=== PATIENT | female | born 1960 | race Caucasian/White ===

== ENCOUNTER 2016-06-18 12:47 | Inpatient (IN) | payer OTHER ==
[~2016-06-18] VITALS: Ht 165.1 cm; Wt 59.2 kg
[2016-06-18 13:34] LABS: EOSINOPHIL (%) 3.6 % (0-5); EOSINOPHIL COUNT 0.3 K/uL (0-0.3); HEMATOCRIT 39.5 % (36.0-46.0); IMMATURE GRANULOCYTE (%) 0.3 % (0.0-0.7); IMMATURE GRANULOCYTE COUNT 0.2 K/uL; MCH 29.7 PG (29.0-34.0); MCHC 34.2 G/DL (30.0-36.0); MEAN PLAT.VOLUME 10.4 uM^3 (9.5-12.4); MONOCYTE (%) 4.8 % (3-12); MONOCYTE COUNT 0.3 K/uL (0-0.8); NEUTROPHIL (%) 61.9 % (45-76); NEUTROPHIL COUNT 4.2 K/uL (1.8-6.4); PLATELET COUNT 204 K/uL (156-360); RBC DIS.WIDTH-CV 12.5 % (11.8-14.6); RBC DIS.WIDTH-SD 38.7 % (39-53); RED BLOOD COUNT 4.54 M/uL (3.80-5.20); WHITE BLOOD COUNT 6.9 K/uL (4.1-10.2)
[2016-06-18 13:41] LABS: AMYLASE 66 IU/L (1-118); CHLORIDE 108 mEq/L (99-109); POTASSIUM 3.6 mEq/L (3.7-5.4); SODIUM 136 mEq/L (136-147)
[2016-06-18 13:43] LABS: GLUCOSE 91 mg/dL (70-99)
[2016-06-18 13:44] LABS: ANION GAP 8 MEQ/L (2-14)
[2016-06-18 13:46] LABS: SERUM ETHYL ALCOHOL 218 mg/dL
[2016-06-18 13:47] LABS: GFR ESTIMATE (CALCULATED) > 59 mL/min/
[2016-06-18 13:48] LABS: UREA NITROGEN (BUN) 8 mg/dL (9-23)
[2016-06-18 13:50] LABS: LIPASE 33 U/L (1.0-51.0)
[2016-06-18 13:51] LABS: ADD MIUA? YES; BILIRUBIN NEGATIVE; BLOOD TRACE; COLOR LT YELLOW ((YELLOW)); GLUCOSE (STRIP) NEGATIVE; KETONES NEGATIVE; LEUKOCYTES NEGATIVE; NITRITE NEGATIVE; PROTEIN (STRIP) NEGATIVE; UROBILINOGEN 0.2 MG/DL (0.2-1.0)
[2016-06-18 13:56] LABS: QUANTITATIVE HCG < 4.0 MIU/ML
[2016-06-18 13:58] LABS: BACTERIA 1+; CASTS NONE SEEN /LPF; CRYSTALS NONE SEEN; EPITHELIAL CELLS RARE; MUCUS NONE SEEN; PATHOLOGICAL CAST NONE SEEN; SMALL ROUND CELL NONE SEEN; UCUL ADDED? NO; WHITE BLOOD CELLS 0-5 /HPF (0-5); YEAST-LIKE CELL NONE SEEN
[2016-06-18 14:02] LABS: AMPHETAMINE NEGATIVE (500 ng/mL); BARBITURATES NEGATIVE (200 ng/mL); BENZODIAZEPINES NEGATIVE (150 ng/mL); COCAINE NEGATIVE (150 ng/mL); INTERNAL CONTROLS VALID? YES; METHADONE NEGATIVE (200 ng/mL); METHAMPHETAMINE NEGATIVE (500 ng/mL); OPIATES (MORPHINE) NEGATIVE (100 ng/mL); OXYCODONE NEGATIVE (100 ng/mL); PHENCYCLIDINE NEGATIVE (25 ng/mL); PROPOXYPHENE NEGATIVE (300 ng/mL); THC CANNABINOIDS NEGATIVE (50 ng/mL); TRICYCLIC ANTIDEPRESSANTS NEGATIVE (300 ng/mL)
[2016-06-18 15:44] LABS: PROTHROMBIN TIME 10.4 (9.2-11.2)
[2016-06-18] MEDS ORDERED: ADVAIR HFA120 INHALA IH (15:50)
[2016-06-18] MEDS ORDERED: LAMICTAL200 MG PO (15:50)
[2016-06-18] MEDS ORDERED: PRAVACHOL20 MG PO (15:51)
[2016-06-18] MEDS ORDERED: CYMBALTA30 MG PO (15:51)
[2016-06-18] MEDS ORDERED: VENTOLIN HFA18 GM IH (15:52)
[2016-06-18] MEDS ORDERED: PLAVIX75 MG PO (15:52)
[2016-06-18] MEDS ORDERED: LOPRESSOR25 MG PO (15:52)
[2016-06-18] MEDS ORDERED: LO-DOSE ASPIRIN81 M2 PO (15:54)
[2016-06-18] MEDS ORDERED: PROTONIX40 MG PO (15:54)
[2016-06-18] MEDS ORDERED: FOLIC ACID1 MG PO (15:55)
[2016-06-18] MEDS ORDERED: NICODERM CQ1 EAC2 TD (15:55)
[2016-06-18 20:15] VITALS: BP 118/67
[2016-06-19] VITALS (7 sets, daily range): BP systolic 100–127; BP diastolic 58–77
[2016-06-19 05:58] LABS: ALKALINE PHOSPHATASE 86 IU/L (3-129); ANION GAP 7 MEQ/L (2-14); CHLORIDE 107 MEQ/L (99-109); GFR ESTIMATE (CALCULATED) > 59 mL/min/; GLUCOSE 92 mg/dL (70-99); MAGNESIUM 1.8 mg/dl (1.3-2.7); POTASSIUM 4.3 MEQ/L (3.7-5.4); SAMPLE HEMOLYSIS CHECK 0; SAMPLE ICTERIC CHECK 0; SAMPLE LIPEMIA CHECK 0; SODIUM 138 MEQ/L (136-147); TOTAL BILIRUBIN 0.4 MG/DL (0.0-1.0); UREA NITROGEN (BUN) 6 mg/dL (9-23)
[2016-06-20 04:49] VITALS: BP 118/78
[2016-06-20 08:20] VITALS: BP 114/68
[2016-06-20 11:46] VITALS: BP 131/66
[2016-06-20 17:14] VITALS: BP 138/76
[2016-06-20 20:57] VITALS: BP 109/65
[2016-06-21 00:11] VITALS: BP 108/60
[2016-06-21 04:55] VITALS: BP 112/76
[2016-06-21 07:26] VITALS: BP 115/62
[2016-06-21 07:41] LABS: ALKALINE PHOSPHATASE 86 IU/L (3-129); ANION GAP 11 MEQ/L (2-14); CHLORIDE 103 MEQ/L (99-109); GFR ESTIMATE (CALCULATED) > 59 mL/min/; GLUCOSE 102 mg/dL (70-99); POTASSIUM 4.3 MEQ/L (3.7-5.4); SAMPLE HEMOLYSIS CHECK 0; SAMPLE ICTERIC CHECK 0; SAMPLE LIPEMIA CHECK 0; SODIUM 135 MEQ/L (136-147); UREA NITROGEN (BUN) 5 mg/dL (9-23)
[2016-06-21 07:43] LABS: TOTAL BILIRUBIN 0.7 MG/DL (0.0-1.0)
[2016-06-21 07:52] LABS: HEMATOCRIT 37.6 % (36.0-46.0); MCH 30.1 PG (29.0-34.0); MCHC 33.5 G/DL (30.0-36.0); MEAN PLAT.VOLUME 10.6 uM^3 (9.5-12.4); PLATELET COUNT 163 K/uL (156-360); RBC DIS.WIDTH-CV 12.9 % (11.8-14.6); RBC DIS.WIDTH-SD 41.5 % (39-53); RED BLOOD COUNT 4.18 M/uL (3.80-5.20)
[2016-06-21 11:48] VITALS: BP 113/66
[2016-06-21 15:05] VITALS: BP 96/62
[2016-06-22 04:38] VITALS: BP 124/74
[2016-06-22 07:45] VITALS: BP 131/72
[2016-06-22 16:09] VITALS: BP 103/63
[2016-06-23] VITALS: BP 107/58
[2016-06-23 08:07] VITALS: BP 126/60
[2016-06-23 16:19] VITALS: BP 108/56
[2016-06-23 23:21] VITALS: BP 103/59
[2016-06-24 08:11] VITALS: BP 114/59
[2016-06-24] MEDS ORDERED: OXAYDO5 MG PO (14:30)
[2016-06-24 16:45] VITALS: BP 122/60
[2016-06-24 23:23] VITALS: BP 96/58
[2016-06-25 07:00] VITALS: BP 102/59
[2016-06-25 11:52] VITALS: BP 105/63
[2016-06-25 15:37] VITALS: BP 118/62
[2016-06-26 00:24] VITALS: BP 96/55
[2016-06-26 08:12] VITALS: BP 98/59
== END 2016-06-26 21:18 | DRG 472 ==
LOC: TRA 12:47 → EDBD 12:47 → EDOF 16:49 → 3EAST 16:49
PROVIDERS: Emergency Medicine; Surgery
DX: S12.500A Unspecified displaced fracture of sixth cervical vertebra, initial encounter for closed fracture (principal); S52.501A Unspecified fracture of the lower end of right radius, initial encounter for closed fracture; F10.129 Alcohol abuse with intoxication, unspecified; I25.2 Old myocardial infarction; J44.9 Chronic obstructive pulmonary disease, unspecified; M47.812 Spondylosis without myelopathy or radiculopathy, cervical region; G40.909 Epilepsy, unspecified, not intractable, without status epilepticus; S62.001A Unspecified fracture of navicular [scaphoid] bone of right wrist, initial encounter for closed fracture; V48.0XXA Car driver injured in noncollision transport accident in nontraffic accident, initial encounter; Z79.01 Long term (current) use of anticoagulants; F17.200 Nicotine dependence, unspecified, uncomplicated; F32.9 Major depressive disorder, single episode, unspecified; M25.531 Pain in right wrist; Y92.410 Unspecified street and highway as the place of occurrence of the external cause; Y99.9 Unspecified external cause status
CPT/HCPCS: 70450; 71010; 71260; 72040; 72125; 72129; 72132; 73080; 73110; 73630; 74177; 76000; 80048; 80053; 81003; 82150; 83690; 83735; 84702; 85025; 85027; 85610; 86850; 86900; 86901; 90832; 93005; 94640; 94640 76; 94799; 97530 GP; 99202; 99281; 99285; C1713; C9113; G0480; J0330; J0690; J1100; J2060; J2250; J2405; J3010; J3411; J3480; J7030